=== PATIENT | female | born 1975 | race African-American/Black ===

== ENCOUNTER 2017-12-28 19:45 | Emergency (ER) | payer OTHER ==
[~2017-12-28] VITALS: Ht 160 cm; Wt 88.5 kg
[~2017-12-28 19:45] MED LIST: PROTONIX40 MG PO; PROVENTIL17 G1 IH
[2017-12-28] MEDS ORDERED: TAGAMENT (19:50)
[2017-12-28 20:05] LABS: URINE BILIRUBIN NEGATIVE (Negative); URINE BLOOD NEGATIVE (Negative); URINE CLARITY CLEAR; URINE COLOR YELLOW; URINE GLUCOSE-RANDOM* NEGATIVE (Negative); URINE KETONES NEGATIVE (Negative); URINE LEUKOCYTES 1+ (Negative); URINE NITRITE NEGATIVE (Negative); URINE PROTEIN (DIPSTICK) NEGATIVE (Negative); URINE SPECIFIC GRAVITY <= 1.005 (1.005-1.035); URINE UROBILINOGEN 0.2 E.U./dl (0.2-1.0)
[2017-12-28 20:13] LABS: BACTERIA 1-9 Few /HPF (None Seen); SQUAMOUS 0-3 Few /LPF (0-3); URINE RBC None Seen /HPF (0-2); URINE WBC 0-5 Rare /HPF (0-5)
[2017-12-28 20:14] LABS: CASTS None Seen /LPF (None Seen); CRYSTALS None Seen /LPF (None Seen)
[2017-12-28 20:22] LABS: ABSOLUTE NEUTROPHILS 10.2 thou/uL (1.4-8.2); BASOPHILS 0.4 % (0.0-2.0); EOSINOPHILS 1.1 % (0.0-3.0); HEMATOCRIT 32.3 % (37.0-47.0); LYMPHOCYTES 11.3 % (24.0-44.0); MCH 25.5 pg (26.0-34.0); MCHC 33.9 g/dL (28.0-37.0); MCV 75.2 fL (80.0-100.0); MONOCYTES 10.9 % (1.0-8.0); PLATELET COUNT 338 thou/uL (150-400); POLYS 76.3 % (36.0-66.0); RBC 4.29 mil/uL (4.20-5.00); WBC 13.3 thou/uL (4.0-11.0)
[2017-12-28 20:29] LABS: CALCIUM 8.6 mg/dL (8.5-10.1); CREATININE 0.7 mg/dL (0.6-1.0); POTASSIUM 3.4 mmol/L (3.5-5.1)
[2017-12-28 20:35] LABS: ALBUMIN 3.2 g/dL (3.4-5.0); DIRECT BILIRUBIN 0.1 mg/dL (<0.1-0.3); TOTAL BILIRUBIN 0.5 mg/dL (<0.1-1.0); TOTAL PROTEIN 7.5 g/dL (6.4-8.2)
[2017-12-28] MEDS ORDERED: MACROBID 100 M100 M1 PO (21:29)
[2017-12-28 21:37] VITALS: BP 122/68
== END 2017-12-28 21:35 | disposition home or self-care (01) ==
LOC: ER 19:45
PROVIDERS: Emergency Medicine
DX: N39.0 Urinary tract infection, site not specified (principal); D72.829 Elevated white blood cell count, unspecified; K21.9 Gastro-esophageal reflux disease without esophagitis; J45.909 Unspecified asthma, uncomplicated

== ENCOUNTER 2018-04-17 17:20 | Emergency (ER) | payer OTHER ==
[~2018-04-17] VITALS: Ht 160 cm; Wt 86.2 kg
[~2018-04-17 17:20] MED LIST changes: +MACROBID 100 M100 M1 PO; +TAGAMENT
[2018-04-17 17:59] LABS: BASOPHILS 0.3 % (0.0-2.0); EOSINOPHILS 0.2 % (0.0-3.0); HEMATOCRIT 33.2 % (37.0-47.0); HEMOGLOBIN 11.2 gm/dL (12.0-15.0); LYMPHOCYTES 6.1 % (24.0-44.0); MCH 25.3 pg (26.0-34.0); MCHC 33.9 g/dL (28.0-37.0); MCV 74.6 fL (80.0-100.0); MONOCYTES 9.2 % (1.0-8.0); PLATELET COUNT 409 thou/uL (150-400); POLYS 84.2 % (36.0-66.0); RBC 4.44 mil/uL (4.20-5.00); RDW 17.2 % (10.5-14.5); WBC 16.7 thou/uL (4.0-11.0)
[2018-04-17 18:08] LABS: CALCIUM 9.1 mg/dL (8.5-10.1); CREATININE 0.8 mg/dL (0.6-1.0); POTASSIUM 3.1 mmol/L (3.5-5.1)
[2018-04-17 18:14] LABS: ALBUMIN 3.1 g/dL (3.4-5.0); TOTAL BILIRUBIN 0.6 mg/dL (<0.1-1.0); TOTAL PROTEIN 8.6 g/dL (6.4-8.2)
[2018-04-17 18:44] LABS: URINE BILIRUBIN NEGATIVE (Negative); URINE BLOOD 2+ (Negative); URINE CLARITY CLEAR; URINE COLOR YELLOW; URINE GLUCOSE-RANDOM* NEGATIVE (Negative); URINE KETONES 1+ (Negative); URINE LEUKOCYTES-REFLEX NEGATIVE (Negative); URINE NITRITE-REFLEX NEGATIVE (Negative); URINE PROTEIN (DIPSTICK) NEGATIVE (Negative); URINE UROBILINOGEN 0.2 E.U./dl (0.2-1.0)
[2018-04-17 18:52] LABS: BACTERIA-REFLEX None Seen /HPF (None Seen); CASTS None Seen /LPF (None Seen); CRYSTALS None Seen /LPF (None Seen); SQUAMOUS 4-10 Moderate /LPF (0-3); URINE RBC 3-10 Few /HPF (0-2); URINE WBC-REFLEX 0-5 Rare /HPF (0-5)
[2018-04-17] MEDS ORDERED: ZOFRAN ODT4 MG PO (20:44)
[2018-04-17] MEDS ORDERED: NORCO 5-325 TA1 EACH PO (20:44)
[2018-04-17] MEDS ORDERED: CIPRO500 MG PO (20:44)
[2018-04-17] MEDS ORDERED: FLAGYL500 M1 PO (20:44)
[2018-04-17] MEDS ORDERED: ACETAMINOPHEN-1 EAC1 PO (21:02)
[2018-04-17 21:17] VITALS: BP 130/79
== END 2018-04-17 21:17 | disposition home or self-care (01) ==
LOC: ER 17:20
PROVIDERS: Physician Assistant
DX: K52.9 Noninfective gastroenteritis and colitis, unspecified (principal); K80.20 Calculus of gallbladder without cholecystitis without obstruction; N76.0 Acute vaginitis; B96.89 Other specified bacterial agents as the cause of diseases classified elsewhere; D72.829 Elevated white blood cell count, unspecified; D25.9 Leiomyoma of uterus, unspecified; K21.9 Gastro-esophageal reflux disease without esophagitis; J45.909 Unspecified asthma, uncomplicated

== ENCOUNTER 2018-04-19 21:36 | Inpatient (IN) | payer OTHER ==
[~2018-04-19] VITALS: Ht 160 cm; Wt 84.6 kg
--- NOTE | ~2018-04-19 | HC ---
[facility] [place] [place] [address] CONSULTATION Name: MEERA SCHAEFFERN Room #: 417-I ADM IN M.R.#: [id number] Admission: 04/19/18 Attend Phys: Josh Ramirez MD Discharge: Date of : 79 Report #: [id number] THIS REPORT FOR: //name// CC: [facility] physician/PCP Josh Ramirez DATE OF SERVICE: 04/23/2018 REASON FOR CONSULTATION: Uterine fibroids with menorrhagia. HISTORY OF PRESENT ILLNESS: This is a 43-year-old who was admitted to [facility] with abdominal pain consistent with colitis and hypokalemia. She is being treated and evaluated for colitis and hypokalemia. She did have a CT scan, which mentioned multiple fibroids, the largest fibroid measuring 5.6 cm. There was no other mention about the pelvis including the overall size of the uterus, other fibroids, and no mention of the ovaries or the endometrial thickness. The patient indicates she had menarche at age 11. She has regular menstrual cycles every month, but are somewhat heavy lasting 5-7 days with clotting and cramping. She had 1 prior spontaneous miscarriage requiring a suction D and C. She also had 2 C-sections. She currently uses only condoms for contraception. She denies having been told in the past that she had uterine fibroids. Her last Pap smear was about 2 years ago. She denies any abnormal Pap smears. She states there is no family history of any gynecologic malignancy, but her mother had a hysterectomy for heavy menstrual cycles. She has had consistent stable hemoglobin of approximately 9.6 over the last several days. She is not actively bleeding at this time. She states in the past, she has been tried on oral contraception as well as the NuvaRing. She states she did not tolerate either the pill or the NuvaRing well. She currently uses only condoms for contraception. She did have a negative test on admission. She denies any other chronic gynecologic problems. She did have a culture that was negative for chlamydia and gonorrhea. She had a culture that was positive for Trichomonas. She states she does not desire to have any further children. PHYSICAL EXAMINATION: In her bed today: LUNGS: Clear. HEART: Regular rate and rhythm. ABDOMEN: Diffusely tender, but no specific masses felt. IMPRESSION: Uterine fibroid noted on pelvic CT scan with menorrhagia and dysmenorrhea and current hemoglobin of 9.6. At this time, would recommend further evaluation to include a Pap smear and pelvic exam. Also, I would recommend a pelvic ultrasound for further evaluation of the overall uterine size, further delineation of her fibroids, evaluation of the endometrium as well as evaluation of the ovaries. After further information, I could then determine treatment options for the patient including possible hormonal therapy. She may [address] [address] CONSULTATION Name: MEERA SCHAEFFER PATRICIA Room #: 417-I ADM IN M.R.#: [id number] Admission: 04/19/18 Attend Phys: Josh Ramirez MD Discharge: Date of : 79 Report #: [id number] benefit from a Mirena IUD. For her heavy menstrual cycles, she may benefit from an endometrial ablation, possible fibroid embolization or possible hysterectomy. At this time, the patient is stable from a gynecologic view. She is having no active bleeding. I feel like the remainder of her evaluation could be performed in an office setting as an outpatient. I would recommend now that she have further evaluation with a pelvic ultrasound. <ELECTRONICALLY SIGNED> By: Mayank Weber MD 04/24/18 [id number] Mayank Weber MD /nt
--- NOTE | ~2018-04-19 | HC ---
[facility] [place] [address] CONSULTATION Name: MEERA SCHAEFFER Room #: 417-I ADM IN M.R.#: [id number] Admission: 04/19/18 Attend Phys: Ata Wolf MD Discharge: Date of : 79 Report #: [id number] THIS REPORT FOR: //name// CC: Ata Wolf [facility] physician/PCP GASTROENTEROLOGY CONSULTATION REASON FOR CONSULTATION: The patient is a 43-year-old woman with abdominal pain, diarrhea and evidence of colitis by CT. HISTORY OF PRESENT ILLNESS: This patient reports that she does have a history of irritable bowel syndrome. She has had problems with abdominal pain. She has also had bouts of diarrhea and constipation. She notes that certain foods will cause her to have diarrhea, including syrups and red meats. She also has lactose intolerance by history. She describes some generalized abdominal bloating and gas symptoms. At times, she will have some constipation. She notes if she takes fiber that will help her constipation. She has been evaluated by a physician in the past and was given a medication. She does not recall the name, but said it did not work all that well. She does better with the use of an organic tea and also peppermint, which seems to help her IBS symptoms. She has not had any previous GI evaluation. She was well until about 6 days ago, when she developed abdominal pain. She thought she was constipated and took mag citrate. The constipation resolved, but then she noted her back pain persisted. She had left-sided abdominal pain with radiation of pain into her back. She then developed some nausea. She also had some shortness of breath. In addition, she may have had some rectal bleeding. However, she notes that she had her period at the same time and it was not clear whether the blood came from the rectum or vaginally. She presented to the Emergency Room 3 days ago. She was seen and evaluated in the Emergency Room. She was found to have leukocytosis. CT was completed and revealed colitis, and specifically, she had diffuse thickening and inflammation of the descending colon. She was noted to have diverticulosis as well, but the diagnosis of colitis was favored. She was given Tylenol No. 3, Cipro and metronidazole and went home. However, after discharge from the ER and at home, her symptoms persisted. Her pain did not improve. She did not take her temperature, but felt that she had a fever. She returned to the Emergency Room last evening. Laboratory studies were obtained and she was found to have a white count of 17.1, hemoglobin was 11.0 and overnight, it has dropped to 9.6. She is microcytic with an MCV of 74, platelet count was a little high at 409,000. Her electrolytes revealed hypokalemia with potassium at 2.5; otherwise, they were unremarkable. BUN and creatinine were normal. Liver function [place] [address] CONSULTATION Name: MEERA SCHAEFFER Room #: 417-I ADM IN M.R.#: [id number] Admission: 04/19/18 Attend Phys: Ata Wolf MD Discharge: Date of : 79 Report #: [id number] depressed at 3.1, lipase of 93. Serum test was negative. As for anemia, she says she has been anemic all her life. She reports periods are heavy and she will bleed 6-7 days; notes a few days are very heavy. She notes she was on control for her periods in the past, but reports it was not very helpful. She has not seen a roofer helper vinyl coating for more than a year and a half. She does have a history of fibroids. In addition, on this admission, on the CAT scan, she was found to have cholelithiasis. This is a new diagnosis for her. PAST MEDICAL HISTORY: She has reflux disease. She does describe frequent bouts of regurgitation. She will take pbns-kfq-aliarkw Zantac or Tagamet, which do help to some degree. She does have asthma and takes an inhaler, with good control. She has irritable bowel syndrome, uterine fibroids, recent diagnosis of gallstones and she was found to have bacterial vaginosis on this admission as well. ALLERGIES: No known drug allergies. MEDICATIONS: Usual home medicines, she uses her inhaler. She does take fctt-ksv-bxinceo H2 blockers. SHE HAS USED IRON IN THE PAST, BUT NOTES THAT SHE DOES NOT TOLERATE IT AND SHE GETS NAUSEATED. On recent ER visit, she was given Cipro, metronidazole and Tylenol No. 3. FAMILY HISTORY: No family history of colon cancer. There is a family history of gallbladder disease. She was also family history of Crohn disease in several aunts and cousins. SOCIAL HISTORY: Single, has 2 children alive and well. She smoked on occasion in the past. She drinks alcohol on the weekends. 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 REVIEW OF SYSTEMS: GENERAL: May be some fever recently. No weight loss. CENTRAL NERVOUS SYSTEM: No focal weakness, numbness, loss of consciousness, seizure or strokes. ENT: No change in vision or hearing or sores in the mouth. PULMONARY: Asthma, controlled. No history of pneumonia or tuberculosis. CARDIOVASCULAR: No chest pain, chest tightness or palpitations. GASTROINTESTINAL: Bouts of regurgitation, bouts of reflux symptoms and some nausea recently. No vomiting. Possible recent rectal bleeding, colitis on CT and recent diagnosis of gallstones. GENITOURINARY: She was treated for urinary tract infection several months ago. GYNECOLOGIC: Uterine fibroids, heavy menses. No breast problems. MUSCULOSKELETAL: No arthralgias or myalgias. [facility] [address] [place] [address] CONSULTATION Name: MEERA SCHAEFFER Room #: 417-I [facility]#: [id number] Admission: 04/19/18 Attend Phys: Ata Wolf MD Discharge: Date of : 79 Report #: [id number] SKIN: Without rash. PSYCHIATRIC: No depression, anxiety or bipolar illness. ENDOCRINE: She is not aware of any hormone problems, hormonal problems, such as diabetes or thyroid disease. HEMATOLOGIC: No bleeding, bruising or malignancies. PHYSICAL EXAMINATION: GENERAL: The patient is a well-developed, well-nourished, pleasant woman, who is awake, alert and oriented, in no acute distress. She is overweight. VITAL SIGNS: Blood pressure 128/73. HEENT: Anicteric. Pupils equal and round. Oropharynx clear. NECK: Supple. CHEST: Clear. HEART: Regular rate and rhythm. Normal S1 and normal S2. ABDOMEN: Overweight. Normal bowel sounds. Soft, nontender. Modest tenderness to deep palpation on the left lower quadrant. No rebound or rigidity. Overall, she has benign abdomen. RECTAL: Not done. EXTREMITIES: Without cyanosis, clubbing or edema. NEUROLOGIC: Oriented to person, place and time. Moves all 4 extremities well. ASSESSMENT: 1. Acute colitis. 2. Possible rectal bleeding. 3. Iron-deficiency anemia, menses plus or minus gastrointestinal blood loss. 4. Reflux disease. 5. Frequent regurgitation. 6. Family history of Crohn disease. 7. Gallstones. 8. Family history of gallbladder disease. RECOMMENDATIONS: 1. Agree with the antibiotics. 2. Agree with clear liquids, advance as tolerated. 3. Discussed with the patient. Suggest we treat her colitis empirically and then proceed with colonoscopy in about 4 weeks, especially since there is a family history of Crohn disease. 4. Upper endoscopy at the same time as colonoscopy due to symptoms of regurgitation and reflux. <ELECTRONICALLY SIGNED> By: Moise Richards MD 04/21/18 [id number] Moise Richards MD /nt
[~2018-04-19 21:36] MED LIST changes: +ACETAMINOPHEN-1 EAC1 PO; +CIPRO500 MG PO; +FLAGYL500 M1 PO; +NORCO 5-325 TA1 EACH PO; +ZOFRAN ODT4 MG PO
[2018-04-19 21:37] VITALS: BP 119/78
[2018-04-19 22:09] LABS: ABSOLUTE NEUTROPHILS 14.7 thou/uL (1.4-8.2); BASOPHILS 0.2 % (0.0-2.0); HEMATOCRIT 33.6 % (37.0-47.0); LYMPHOCYTES 5.6 % (24.0-44.0); MCH 24.1 pg (26.0-34.0); MCHC 32.6 g/dL (28.0-37.0); MCV 73.9 fL (80.0-100.0); MONOCYTES 7.9 % (1.0-8.0); POLYS 86.3 % (36.0-66.0); RBC 4.55 mil/uL (4.20-5.00); RDW 17.6 % (10.5-14.5); WBC 17.1 thou/uL (4.0-11.0)
[2018-04-19 22:10] LABS: PLATELET COUNT 493 thou/uL (150-400)
[2018-04-19 22:18] LABS: CREATININE 0.8 mg/dL (0.6-1.0)
[2018-04-19 22:21] LABS: POTASSIUM 2.5 mmol/L (3.5-5.1)
[2018-04-19 23:05] VITALS: BP 121/80
[2018-04-19 23:11] VITALS: BP 131/85
[2018-04-20 05:05] LABS: HEMATOCRIT 29.4 % (37.0-47.0); HEMOGLOBIN 9.6 gm/dL (12.0-15.0); MCH 24.2 pg (26.0-34.0); MCHC 32.6 g/dL (28.0-37.0); MCV 74.3 fL (80.0-100.0); RBC 3.97 mil/uL (4.20-5.00); RDW 17.5 % (10.5-14.5); WBC 15.6 thou/uL (4.0-11.0)
[2018-04-20 05:38] LABS: CALCIUM 8.3 mg/dL (8.5-10.1); CREATININE 0.7 mg/dL (0.6-1.0); POTASSIUM 3.1 mmol/L (3.5-5.1)
[2018-04-20 07:11] VITALS: BP 123/78
[2018-04-20 19:17] VITALS: BP 119/61
[2018-04-21 04:31] VITALS: BP 123/73
[2018-04-21 07:05] VITALS: BP 122/67
[2018-04-21 16:20] VITALS: BP 131/86
[2018-04-21 20:11] VITALS: BP 126/70
[2018-04-22 05:41] VITALS: BP 128/74
[2018-04-22 06:24] LABS: ABSOLUTE NEUTROPHILS 10.5 thou/uL (1.4-8.2); BASOPHILS 0.3 % (0.0-2.0); EOSINOPHILS 0.7 % (0.0-3.0); HEMATOCRIT 28.8 % (37.0-47.0); HEMOGLOBIN 9.5 gm/dL (12.0-15.0); LYMPHOCYTES 8.2 % (24.0-44.0); MCH 24.9 pg (26.0-34.0); MCHC 33.2 g/dL (28.0-37.0); MCV 75.2 fL (80.0-100.0); MONOCYTES 6.8 % (1.0-8.0); PLATELET COUNT 450 thou/uL (150-400); RBC 3.82 mil/uL (4.20-5.00); RDW 17.6 % (10.5-14.5); WBC 12.5 thou/uL (4.0-11.0)
[2018-04-22 06:38] LABS: CALCIUM 8.5 mg/dL (8.5-10.1); CREATININE 0.7 mg/dL (0.6-1.0); MAGNESIUM 2.1 mg/dL (1.8-2.4)
[2018-04-22 09:43] VITALS: BP 136/85
[2018-04-22 17:15] VITALS: BP 122/81
[2018-04-22 19:15] VITALS: BP 125/80
[2018-04-23 03:30] VITALS: BP 120/77
[2018-04-23 06:02] LABS: ABSOLUTE NEUTROPHILS 10.1 thou/uL (1.4-8.2); BASOPHILS 0.3 % (0.0-2.0); EOSINOPHILS 0.4 % (0.0-3.0); HEMATOCRIT 29.6 % (37.0-47.0); HEMOGLOBIN 9.6 gm/dL (12.0-15.0); LYMPHOCYTES 8.3 % (24.0-44.0); MCH 24.1 pg (26.0-34.0); MCHC 32.3 g/dL (28.0-37.0); MCV 74.5 fL (80.0-100.0); MONOCYTES 9.8 % (1.0-8.0); PLATELET COUNT 512 thou/uL (150-400); POLYS 81.2 % (36.0-66.0); RBC 3.97 mil/uL (4.20-5.00); RDW 18.1 % (10.5-14.5); WBC 12.4 thou/uL (4.0-11.0)
[2018-04-23 06:12] LABS: CALCIUM 8.6 mg/dL (8.5-10.1); CREATININE 0.6 mg/dL (0.6-1.0); MAGNESIUM 2.1 mg/dL (1.8-2.4); POTASSIUM 3.5 mmol/L (3.5-5.1)
[2018-04-23 08:02] VITALS: BP 119/66
[2018-04-23 16:03] VITALS: BP 112/66
[2018-04-23 20:52] VITALS: BP 129/86
[2018-04-24 06:20] VITALS: BP 122/82
[2018-04-24 08:06] VITALS: BP 123/84
[2018-04-24] MEDS ORDERED: BENTYL 10 MG CA10 M1 PO (11:02)
[2018-04-24] MEDS ORDERED: PANTOPRAZOLE SO40 M1 PO (11:03)
[2018-04-24] MEDS ORDERED: TRAMADOL 50 MG50 MG PO (11:03)
[2018-04-24 11:16] LABS: HEMATOCRIT 30.3 % (37.0-47.0); HEMOGLOBIN 9.7 gm/dL (12.0-15.0); MCH 24.1 pg (26.0-34.0); MCHC 32.1 g/dL (28.0-37.0); MCV 75.2 fL (80.0-100.0); RBC 4.03 mil/uL (4.20-5.00); RDW 17.9 % (10.5-14.5)
[2018-04-24 12:54] VITALS: BP 111/74
[2018-04-24 13:48] LABS: % SATURATION 7 % (20-39); IRON 15 ug/dL (50-170); TIBC 224 ug/dL (250-450)
[2018-04-24 16:45] VITALS: BP 111/74
== END 2018-04-24 18:47 | disposition home or self-care (01) | DRG 392 ==
LOC: ER 21:36 → 4E 22:25 → EROBS 22:25 → 4E 23:24
PROVIDERS: Emergency Medicine; Internal Medicine; Internal Medicine Gastroenterology; Nurse Practitioner; Nurse Practitioner Family; Specialist
DX: K57.32 Diverticulitis of large intestine without perforation or abscess without bleeding (principal); N39.0 Urinary tract infection, site not specified; N76.0 Acute vaginitis; K21.9 Gastro-esophageal reflux disease without esophagitis; J45.909 Unspecified asthma, uncomplicated; K52.9 Noninfective gastroenteritis and colitis, unspecified; E87.6 Hypokalemia; K80.80 Other cholelithiasis without obstruction; D50.0 Iron deficiency anemia secondary to blood loss (chronic); D25.9 Leiomyoma of uterus, unspecified; N92.0 Excessive and frequent menstruation with regular cycle; K59.00 Constipation, unspecified; N94.6 Dysmenorrhea, unspecified; K80.20 Calculus of gallbladder without cholecystitis without obstruction; K76.89 Other specified diseases of liver; K42.9 Umbilical hernia without obstruction or gangrene; Z79.899 Other long term (current) drug therapy
CPT/HCPCS: 10084